=== PATIENT | female | born 1990 | race Hispanic/Latino ===

== ENCOUNTER 2018-06-13 19:12 | Emergency (ER) | payer OTHER ==
[~2018-06-13] VITALS: Ht 157.5 cm; Wt 56.0 kg
[~2018-06-13 19:12] MED LIST: MOTRIN400 MG PO
[2018-06-13 20:09] LABS: IMMATURE GRANULOCYTES 0.3 % (0.0-5.0); MEAN CORPUSCULAR HGB 29.8 pG CALC (26.0-32.0); MEAN CORPUSCULAR HGB CONC 33.1 g/L CALC (32.0-36.0); NEUT# 10.24 thou/uL (2.00-7.15); RED BLOOD COUNT 5.07 mill/uL (4.20-5.60); RED CELL DISTRI WIDTH 12.2 % (11.5-15.5)
[2018-06-13 20:13] LABS: HEMATOCRIT 45.6 % (37.0-47.0); HEMOGLOBIN 15.1 g/dl (12.0-16.0); MEAN CELL VOLUME 89.9 fL CALC (80.0-100.0)
[2018-06-13 20:17] LABS: URINE BILIRUBIN - DIPSTICK NEGATIVE (NEGATIVE); URINE BLOOD DIPSTICK NEGATIVE (NEGATIVE); URINE COLOR YELLOW; URINE GLUCOSE - DIPSTICK NEGATIVE (NEGATIVE); URINE KETONE NEGATIVE (NEGATIVE); URINE LEUK ESTERASE NEGATIVE (NEGATIVE); URINE NITRITE - DIPSTICK NEGATIVE (Negative); URINE PH 7.5 (4.5-8.0); URINE PROTEIN - DIPSTICK 100 mg/dL (NEG-TRACE); URINE UROBILINOGEN - DIPSTICK 0.2 E.U./dL (0.2)
[2018-06-13 20:18] LABS: HCG SERUM/URINE (NEG/POS) NEGATIVE (NEGATIVE); URINE CLARITY CLEAR; URINE RBC 0-2 RBC/hpf (0-5); URINE SQUAMOUS EPITHELIAL CELL FEW EPI/hpf (0-FEW); URINE WBC 0-2 WBC/hpf (0-5)
[2018-06-13 20:20] LABS: BARBITURATES NEGATIVE (NEGATIVE); COCAINE NEGATIVE (NEGATIVE); METHADONE NEGATIVE (NEGATIVE); OXCYCODONE NEGATIVE (NEGATIVE); TETRAHYDROCANNABIONOL NEGATIVE (NEGATIVE); TRICYLIC ANTIDEPRESSANTS NEGATIVE (NEGATIVE)
[2018-06-13 20:22] LABS: ALKALINE PHOSPHATASE 90 u/l (38-126); ANION GAP 17 (6-22 (CALC)); BILIRUBIN, TOTAL 0.7 mg/dL (0.0-1.4); BUN 11 mg/dL (7-17); BUN/CREATININE RATIO 13 (12-20 (CALC)); CARBON DIOXIDE 25 mmol/l (22-30); CHLORIDE 104 mmol/l (95-108); CREATININE 0.8 mg/dL (0.5-1.0); GFR > 60 ML/MIN (>=60 (CALC)); GFR FOR AFR.AMER. > 60 ML/MIN (>=60 (CALC)); SGOT/AST 29 u/l (14-36); SGPT/ALT 28 u/l (9-52); SODIUM 142 mmol/l (137-146); TOTAL PROTEIN 8.7 g/dL (6.3-8.2)
[2018-06-13 20:27] LABS: INFLUENZA A NONE DETECTED (NONE DETECT); INFLUENZA B NONE DETECTED (NONE DETECT)
[2018-06-13 20:33] LABS: MYOGLOBIN 26 ng/mL (0 - 62)
[2018-06-13] MEDS ORDERED: ZOFRAN ODT4 MG PO (22:08)
[2018-06-13 23:33] VITALS: BP 99/55
== END 2018-06-13 23:30 | disposition home or self-care (01) | DRG 312 ==
LOC: ED 19:12
DX: R55 Syncope and collapse (principal); R11.2 Nausea with vomiting, unspecified

== ENCOUNTER 2021-01-04 09:55 | Emergency (ER) | payer OTHER ==
[~2021-01-04 09:55] MED LIST changes: +ZOFRAN ODT4 MG PO
[2021-01-04] MEDS ORDERED: FLEXERIL5 M1 PO (13:02)
[2021-01-04] MEDS ORDERED: TORADOL PO (13:02)
[2021-01-04 13:20] VITALS: BP 113/73
== END 2021-01-04 13:20 | disposition home or self-care (01) | DRG 552 ==
LOC: ED 09:55
DX: M54.2 Cervicalgia (principal); M25.512 Pain in left shoulder; M54.5 Low back pain; V59.40XA Driver of pick-up truck or van injured in collision with unspecified motor vehicles in traffic accident, initial encounter

== ENCOUNTER 2022-09-20 20:44 | Emergency (ER) | payer OTHER ==
[~2022-09-20] VITALS: Ht 157.5 cm; Wt 65.0 kg
[~2022-09-20 20:44] MED LIST changes: +FLEXERIL5 M1 PO; +TORADOL PO
[2022-09-20 21:16] VITALS: BP 114/76
[2022-09-20 21:30] VITALS: BP 108/67
[2022-09-20 21:45] VITALS: BP 115/67
[2022-09-20] MEDS ORDERED: PAXLOVID PO (22:22)
[2022-09-20] MEDS ORDERED: MEDDOSEPAK PO (22:22)
[2022-09-20] MEDS ORDERED: DIPHENHYDRAM50 M2 PO (22:22)
[2022-09-20 23:22] VITALS: BP 115/67
== END 2022-09-20 23:32 | disposition home or self-care (01) | DRG 179 ==
LOC: ED 20:44
DX: U07.1 COVID-19 (principal); L23.9 Allergic contact dermatitis, unspecified cause

== ENCOUNTER 2024-06-15 15:40 | Emergency (ER) | payer OTHER ==
[2024-06-15] VITALS (15 sets, daily range): BP systolic 102–131; BP diastolic 57–71
[~2024-06-15] VITALS: Ht 157.5 cm; Wt 61.0 kg
[~2024-06-15 15:40] MED LIST changes: +DIPHENHYDRAM50 M2 PO; +MEDDOSEPAK PO; +PAXLOVID PO
[2024-06-15] MEDS ORDERED: SODIUM CHLORIDE 0.9% 1,000 ML IV ONE (15:55)
[2024-06-15] MEDS ORDERED: SERTRALINE25 MG PO (16:18)
[2024-06-15 16:28] LABS: BASO% 0.8 % (0-3); EOS% 1.9 % (0-8); HEMATOCRIT 40.5 % (37.0-47.0); HEMOGLOBIN 13.1 g/dl (12.0-16.0); IMMATURE GRANULOCYTES 0.1 % (0.0-5.0); LYMPH% 27.9 % (15-41); MEAN CELL VOLUME 85.8 fL CALC (80.0-100.0); MEAN CORPUSCULAR HGB 27.8 pG CALC (26.0-32.0); MEAN CORPUSCULAR HGB CONC 32.3 g/dL CAL (32.0-36.0); MONO% 6.8 % (2-13); NEUT# 6.07 thou/uL (2.00-7.15); NEUT% 62.5 % (42-76); RED BLOOD COUNT 4.72 mill/uL (4.20-5.60); RED CELL DISTRI WIDTH 14.8 % (11.5-15.5); URINE BILIRUBIN - DIPSTICK Negative (NEGATIVE); URINE BLOOD DIPSTICK Trace-intact (NEGATIVE); URINE GLUCOSE - DIPSTICK Negative (NEGATIVE); URINE KETONE Negative (NEGATIVE); URINE LEUK ESTERASE Negative (NEGATIVE); URINE NITRITE - DIPSTICK Negative (Negative); URINE PROTEIN - DIPSTICK Negative (NEG-TRACE); URINE UROBILINOGEN - DIPSTICK 0.2 E.U./dL (0.2)
[2024-06-15 16:29] LABS: URINE COLOR Straw
[2024-06-15 16:50] LABS: ALBUMIN 4.5 g/dL (3.2-5.0); BILIRUBIN, TOTAL 0.4 mg/dL (0.02-1.3); CREATININE 0.8 mg/dL (0.5-1.0); POTASSIUM 3.5 mmol/l (3.5-5.1); TOTAL PROTEIN 7.5 g/dL (6.3-8.2)
== END 2024-06-15 19:38 | disposition home or self-care (01) | DRG 149 ==
LOC: ED 15:40
PROVIDERS: Family Medicine
DX: R42 Dizziness and giddiness (principal); R53.83 Other fatigue; R25.2 Cramp and spasm; F41.9 Anxiety disorder, unspecified